=== PATIENT | female | born 1970 | race Caucasian/White ===

== ENCOUNTER 2024-11-12 12:23 | Emergency (ER) | payer SELFPAY ==
[2024-11-12 12:32] VITALS: RESP 18; TEMP 97.8
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
--- NOTE | 2024-11-12 13:05 | XRAY ---
Indication: Swelling. No known injury. Comparison: None 3 view left knee demonstrates mild focal soft tissue swelling versus bursitis anterior to tibial plateau. Elsewhere osteopenia, tiny suprapatella spurring, small fabella, and mild scattered subcutaneous venous varicosities. No other abnormalities.
[2024-11-12 13:37] VITALS: BP 145/103; PULSE 78
[2024-11-12] MEDS ORDERED: DELTASONE 20 MG ONE (13:48)
[2024-11-12] MEDS ORDERED: Augmentin 875-125 Tablet ONE (13:48)
[2024-11-12] MEDS: DELTASONE 20 MG PO ONE (13:50)
[2024-11-12] MEDS: Augmentin 875-125 Tablet PO ONE (13:50)
[2024-11-12 14:28] VITALS: O2SAT 98
== END 2024-11-12 14:44 | disposition home or self-care (01) ==
LOC: ED 12:23
DX: M70.52 Other bursitis of knee, left knee (principal); M25.562 Pain in left knee; Z79.52 Long term (current) use of systemic steroids; Z79.899 Other long term (current) drug therapy; Z72.0 Tobacco use
CPT/HCPCS: 73562; 99283; A9270-GY

== ENCOUNTER 2024-11-18 23:05 | Observation (INO) | payer OTHER ==
[2024-11-18] MEDS ORDERED: TYLENOL 325 MG ONE (23:48)
[2024-11-18] MEDS ORDERED: PIPERACILLIN/TAZOBACTAM IV ONE (23:48)
[2024-11-18] MEDS ORDERED: Sodium Chloride 0.9% 1000 ML 1,000 ML ONE (23:49)
[2024-11-18] MEDS ORDERED: Sodium Chloride 100ML MINI-BAG PLUS 100 ML IV ONE (23:49)
[2024-11-18 23:52] LABS: Absolute Neutrophil Ct (ANC) 9.71 x10^3/uL (1.56-6.13); BASOPHIL % 0.3 % (0.1-1.2); Basophil (Absolute #) 0.04 x10^3/uL (0.01-0.08); Eosinophil % 1.1 % (0.7-5.8); Eosinophil (Absolute #) 0.13 x10^3/uL (0.04-0.36); Hematocrit 38.7 % (34.1-44.9); Hemoglobin 12.6 g/dL (11.2-15.7); IMMATURE GRAN # 0.08 x10^3u/L (0.001-0.031); IMMATURE GRAN % 0.6 % (0.001-0.429); Lymphocytes % 11.4 % (19.3-51.7); Mean Cell Volume 86.4 fL (79.4-94.8); Mean Corpuscular Hemoglobin 28.1 pg (25.6-32.2); Mean Corpuscular Hgb Concent. 32.6 g/dL (32.2-35.5); Monocyte (Absolute #) 0.95 x10^3/uL (0.24-0.86); Monocytes % 7.7 % (4.7-12.5); Neutrophil % 78.9 % (34.0-71.1); Platelet Count 455 x10^3/uL (182-369); Red Blood Count 4.48 x10^6/uL (3.93-5.22); Red Cell Distribution Width 13.1 % (11.7-14.4); White Blood Count 12.3 x10^3/uL (3.98-10.04)
[2024-11-18] MEDS: PIPERACILLIN/TAZOBACTAM 3.375 GM in Sodium Chloride 100ML MINI-BAG PLUS 100 ML IV ONE (23:53)
[2024-11-18] MEDS: TYLENOL 325 MG PO STA (23:54)
[2024-11-18] MEDS: Sodium Chloride 0.9% 1000 ML 1,000 ML IV SCH (23:56)
[2024-11-19 00:04] LABS: ALBUMIN 3.9 g/dL (3.5-5.0); ANION GAP 15.2 MEQ/L (5-15); BILIRUBIN,TOTAL 0.6 mg/dL (0.2-1.3); Calcium 8.6 mg/dL (8.4-10.2); Creatinine 1 0.68 mg/dL (0.52-1.04); EST GLOMERULAR FILTRATION RATE 104.1 ML/MIN; Potassium 4.1 mmol/L (3.5-5.1); Total Protein 7.4 g/dL (6.3-8.2)
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
[2024-11-19] MEDS ORDERED: VANCOMYCIN 1 GRAM/200 ML BAG 1 GM/200 ML PIGGYBACK IV ONE (00:38)
[2024-11-19] MEDS: VANCOMYCIN 1 GRAM/200 ML BAG 1 GM/200 ML PIGGYBACK IV ONE (00:39)
[2024-11-19 02:58] LABS: Appearance Clear (Clear); Bacteria Rare /HPF (None Seen); Bilirubin Negative (Negative); Blood Trace (Negative); Epithelial Cells Few /HPF (None Seen); Glucose, Urine Negative (Negative); Hyaline Casts NONE SEEN /LPF (0-2); Ketones Negative (Negative); Leukocyte Esterase Trace (Negative); Nitrite Negative (Negative); Ph 5.5 (4.6-8.0); Protein,Urine Dip Trace (Negative); RBC 0-2 /HPF (0-5); WBC 0-2 /HPF (0-5)
[2024-11-19] MEDS ORDERED: MORPHINE SULFATE 2 MG INJ IV PRN (03:57)
[2024-11-19] MEDS ORDERED: NORCO 5/325 MG PO PRN (03:57)
[2024-11-19] MEDS ORDERED: Zofran 4 MG/2 ML VIAL IV PRN (03:57)
--- NOTE | 2024-11-19 04:05 | PCM.HP ---
History of Present Illness - Chief Complaint Chief Complaint: Left leg pain and swelling Date: 11/19/24 History of Present Illness: 54-year-old woman with no significant past medical history who presents with right leg pain, redness, and swelling. Patient noted onset of pain and swelling around her left knee about 10 days ago. Last week, she came to the ED where she was diagnosed with infrapatellar bursitis. She was given Augmentin and prednisone, but she only took 1 dose of each because she felt nauseated. The pain continued to worsen, with increasing spread of the erythema. Eventually came to where she had difficulty bending her knee due to the pain and had some episode of numbness. She had not noted any drainage from the wound, but did have a serous blister that broke open on the way to the ED tonight. She had not noted any fevers, but her temperature was 103 on arrival to the ED. ED provider was able to drain a superficial fluid collection, and patient noted that her numbness resolved after that. However, the ED provider noted a deeper fluid collection that he suspected was the actual infrapatellar bursa that was inflamed, or was adjacent to the bursa. Orthopedics was consulted in the ED, and will see patient in the morning. Patient denies any anorexia, nausea, or weight change. - Review of Systems All Other Systems: Reviewed and Negative Medications & Allergies Home Medications: Home Medication List No Reportable Medications [No Reported Medications] 11/19/24 [History Confirmed 11/19/24] Allergies/Adverse Reactions: Allergies Allergy/AdvReac Type Severity Reaction Status Date / Time amoxicillin [From Augmentin] AdvReac Vomiting Verified 11/19/24 02:08 clavulanic acid AdvReac Vomiting Verified 11/19/24 02:08 [From Augmentin] diclofenac AdvReac Vomiting Verified 11/19/24 02:08 - Past Medical History Past Medical History: No Neurological History: Migraines ENT History: No Pertinent History Cardiac History: Hypertension Respiratory History: No Pertinent History Endocrine Medical History: No Pertinent History Musculoskelatal History: No Pertinent History GI Medical History: Ulcer History: No Pertinent History Reproductive Disorders: No Pertinent History Comment: broke nose at 18 years old - Female History Hx Last Menstrual Period: 48 years old Are you now?: No - Past Surgical History Past Surgical History: Yes Other Surgical History: d and c Significant Family History: no pertinent family hx - Social History Smoking Status: Current every day smoker How long have you smoked: years Exposure to second hand smoke: No Alcohol: None Drug Use: none - Social Determinants of Health Will the patient participate in the screening: Yes Do you worry about a steady place to live?: No Do you have any problems with any of the following?: No known problems In the past 12 months,have you had to go without utilities?: No Have you or anyone in your house had to go without enough: No Transportation Issues: No Has anyone in your support network made you feel unsafe?: No Does the patient want assistance with any of the above?: No - Physical Exam Vital Signs: Vital Signs - 24 hr Temp Pulse Resp BP BP Pulse Ox 11/19/24 02:55 97.5 F 76 20 124/70 94 L 11/19/24 02:30 80 18 137/83 97 11/19/24 02:00 77 20 113/75 94 L 11/19/24 01:51 95 11/19/24 01:30 77 21 117/73 95 11/19/24 01:00 84 23 111/72 94 L 11/19/24 00:30 94 H 23 122/77 94 L 11/19/24 00:03 91 H 23 125/85 93 L 11/18/24 23:41 95 11/18/24 23:24 103 F 95 H 25 H 163/99 97 Physical Exam GEN: Sitting up in bed in no acute distress. HENT: Normocephalic, atraumatic. Moist mucous membranes. EYES: Normal inspection, anicteric sclera, extraocular movements intact. NECK: Supple, full range of motion CV: Regular rate and rhythm, no murmurs, no gallops. No JVD or edema. PULM: Clear to auscultation bilaterally, no work of breathing. On room air. ABD: Nondistended, nontender. MSK: No joint effusions, intact movement of left knee with some limited range of motion, flexing to 90 degrees, and intact range of motion of distal leg SKIN: Left knee with erythema from just superior to the knee extending to the mid seaman, and extending medially and laterally but not circumferentially posterior to the knee. NEURO: Face symmetric, no focal motor or sensory deficits. PSYCH: Alert, oriented x 3 Results - Labs Lab/Micro Results: Lab Results-Last 24 Hours 11/18/24 11/18/24 11/18/24 Range/Units 23:30 23:30 23:40 WBC 12.3 H (3.98-10.04) x10^3/uL RBC 4.48 (3.93-5.22) x10^6/uL Hgb 12.6 (11.2-15.7) g/dL Hct 38.7 (34.1-44.9) % MCV 86.4 (79.4-94.8) fL MCH 28.1 (25.6-32.2) pg MCHC 32.6 (32.2-35.5) g/dL RDW 13.1 (11.7-14.4) % Plt Count 455 H (182-369) x10^3/uL MPV 9.0 L (9.4-12.3) fL Gran % 78.9 H (34.0-71.1) % Immature Gran % (Auto) 0.6 H (0.001-0.429) % Nucleat RBC Rel Count 0.0 (0.00-0.2) % Eos # (Auto) 0.13 (0.04-0.36) x10^3/uL Immature Gran # (Auto) 0.08 H (0.001-0.031) x10^3u/L Absolute Lymphs (auto) 1.40 (1.18-3.74) x10^3/uL Absolute Monos (auto) 0.95 H (0.24-0.86) x10^3/uL Absolute Nucleated RBC 0.00 (0.00-0.012) x10^3u/L Lymphocytes % 11.4 L (19.3-51.7) % Monocytes % 7.7 (4.7-12.5) % Eosinophils % 1.1 (0.7-5.8) % Basophils % 0.3 (0.1-1.2) % Absolute Granulocytes 9.71 H (1.56-6.13) x10^3/uL Basophils # 0.04 (0.01-0.08) x10^3/uL Sodium 133 L (135-145) mmol/L Potassium 4.1 (3.5-5.1) mmol/L Chloride 100 (98-107) mmol/L Carbon Dioxide 22 (22-30) mmol/L Anion Gap 15.2 H (5-15) MEQ/L BUN 9 (7-17) mg/dL Creatinine 0.68 (0.52-1.04) mg/dL Estimated GFR 104.1 ML/MIN Glucose 172 H (74-106) mg/dL Lactic Acid 1.6 (0.4-2.0) Calcium 8.6 (8.4-10.2) mg/dL Total Bilirubin 0.60 (0.2-1.3) mg/dL AST 29 (14-36) U/L ALT 31 (0-35) U/L Alkaline Phosphatase 132 H (38-126) U/L Serum Total Protein 7.4 (6.3-8.2) g/dL Albumin 3.9 (3.5-5.0) g/dL Urine Color (Yellow) Urine Appearance (Clear) Urine pH (4.6-8.0) Ur Specific [place] (1.005-1.030) Urine Protein (Negative) Urine Glucose (UA) (Negative) mg/dL Urine Ketones (Negative) Urine Blood (Negative) Urine Nitrite (Negative) Urine Bilirubin (Negative) Urine Urobilinogen (0.2) mg/dL Ur Leukocyte Esterase (Negative) U Hyaline Cast (Auto) (0-2) /LPF Urine Microscopic RBC (0-5) /HPF Urine Microscopic WBC (0-5) /HPF Ur Epithelial Cells (None Seen) /HPF Urine Bacteria (None Seen) /HPF Urine Culture Reflexed (NO) 11/19/24 Range/Units 02:45 WBC (3.98-10.04) x10^3/uL RBC (3.93-5.22) x10^6/uL Hgb (11.2-15.7) g/dL Hct (34.1-44.9) % MCV (79.4-94.8) fL MCH (25.6-32.2) pg MCHC (32.2-35.5) g/dL RDW (11.7-14.4) % Plt Count (182-369) x10^3/uL MPV (9.4-12.3) fL Gran % (34.0-71.1) % Immature Gran % (Auto) (0.001-0.429) % Nucleat RBC Rel Count (0.00-0.2) % Eos # (Auto) (0.04-0.36) x10^3/uL Immature Gran # (Auto) (0.001-0.031) x10^3u/L Absolute Lymphs (auto) (1.18-3.74) x10^3/uL Absolute Monos (auto) (0.24-0.86) x10^3/uL Absolute Nucleated RBC (0.00-0.012) x10^3u/L Lymphocytes % (19.3-51.7) % Monocytes % (4.7-12.5) % Eosinophils % (0.7-5.8) % Basophils % (0.1-1.2) % Absolute Granulocytes (1.56-6.13) x10^3/uL Basophils # (0.01-0.08) x10^3/uL Sodium (135-145) mmol/L Potassium (3.5-5.1) mmol/L Chloride (98-107) mmol/L Carbon Dioxide (22-30) mmol/L Anion Gap (5-15) MEQ/L BUN (7-17) mg/dL Creatinine (0.52-1.04) mg/dL Estimated GFR ML/MIN Glucose (74-106) mg/dL Lactic Acid (0.4-2.0) Calcium (8.4-10.2) mg/dL Total Bilirubin (0.2-1.3) mg/dL AST (14-36) U/L ALT (0-35) U/L Alkaline Phosphatase (38-126) U/L Serum Total Protein (6.3-8.2) g/dL Albumin (3.5-5.0) g/dL Urine Color Yellow (Yellow) Urine Appearance Clear (Clear) Urine pH 5.5 (4.6-8.0) Ur Specific [place] 1.010 (1.005-1.030) Urine Protein Trace A (Negative) Urine Glucose (UA) Negative (Negative) mg/dL Urine Ketones Negative (Negative) Urine Blood Trace (Negative) Urine Nitrite Negative (Negative) Urine Bilirubin Negative (Negative) Urine Urobilinogen 1.0 A (0.2) mg/dL Ur Leukocyte Esterase Trace A (Negative) U Hyaline Cast (Auto) NONE SEEN (0-2) /LPF Urine Microscopic RBC 0-2 (0-5) /HPF Urine Microscopic WBC 0-2 (0-5) /HPF Ur Epithelial Cells Few (None Seen) /HPF Urine Bacteria Rare A (None Seen) /HPF Urine Culture Reflexed NO (NO) - Radiology Impressions Radiology Exams & Impressions: Radiology Procedures Category Date Time Status KNEE (1 OR 2 VIEW) Stat Exams 11/19/24 00:33 Taken Assessment/Plan (1) Cellulitis Current Visit: Yes Status: Acute Assessment & Plan: 54-year-old woman with history only of tobacco use, who presents with left leg cellulitis. ## Left leg cellulitis, possible bursitis with erythema over her left leg, progressive over the last 7 to 10 days. ED provider noted area of deep fluctuance concerning for deeper fluid collection. Given presence of fluid collection, will need coverage for staph. Orthopedics consulted, will see patient in the morning to see if needs bursa or joint space drained Remain n.p.o. pending evaluation for need for surgery versus bedside [place] Start vancomycin and Rocephin; vancomycin for coverage for MRSA, and Rocephin for more bacteriocidal rapid improvement of MSSA or strep PRN [place] and morphine for pain Follow-up culture from fluid collection drained by ED provider ## Tobacco use Patient declined nicotine patch Counseled on smoking cessation CODE STATUS: Full code Prophylaxis: Low risk, encourage ambulation Diet: N.p.o., can change to regular diet if not planning on surgery this morning Dispo: Place in observation Entirety of encounter took place via live audio/video telemedicine device, with remote physician and patient in hospital, with the assistance of bedside nurse. Code(s): L03.90 - CELLULITIS, UNSPECIFIED Telemedicine Encounter - Telemedicine Encounter Telemedicine Encounter: "The entirety of this encounter was performed via Telemedicine" This visit was performed using real-time audio and video connection between my location and thepatients locationwith the assistance of a surrogateat the patients location. Written or verbal consent was obtained from the patient/guardian to perform this visit [facility]. Any patient questions regarding the telemedicine interaction were answered.
[2024-11-19 06:02] LABS: Hematocrit 37.9 % (34.1-44.9); Hemoglobin 12.2 g/dL (11.2-15.7); Mean Cell Volume 87.3 fL (79.4-94.8); Mean Corpuscular Hemoglobin 28.1 pg (25.6-32.2); Mean Corpuscular Hgb Concent. 32.2 g/dL (32.2-35.5); Mean Platelet Volume 8.9 fL (9.4-12.3); Platelet Count 445 x10^3/uL (182-369); Red Blood Count 4.34 x10^6/uL (3.93-5.22); Red Cell Distribution Width 13.1 % (11.7-14.4); White Blood Count 12.9 x10^3/uL (3.98-10.04)
[2024-11-19 06:21] LABS: ANION GAP 14.9 MEQ/L (5-15); Calcium 8.5 mg/dL (8.4-10.2); Creatinine 1 0.75 mg/dL (0.52-1.04); EST GLOMERULAR FILTRATION RATE 95.1 ML/MIN; PREALBUMIN 6.1 mg/dL (17.6-36.0)
--- NOTE | 2024-11-19 09:01 | XRAY ---
Indication: Pain. Comparison: November 12, 2024 2 view left knee demonstrates interval worsening anterior knee soft tissue swelling versus bursitis. Elsewhere stable osteopenia, tiny suprapatella spurring, fabella, and mild scattered subcutaneous venous varicosities. No new bony, articular, or soft tissue abnormalities.
[2024-11-19] MEDS: ROCEPHIN 2 GM/100 ML NACL 2 GM/100 ML IVPB IV SCH (09:23)
[2024-11-19] MEDS: TYLENOL 325 MG PO PRN (09:39)
[2024-11-19] MEDS: Lactated Ringers 1,000 ML IV SCH (10:09)
[2024-11-19] MEDS: VANCOMYCIN 1.25 GM/250 ML BAG 1.25 GM/250 ML PIGGYBACK IV SCH (10:09)
[2024-11-19] MEDS: Reglan 10 MG/2 ML IV SCH (10:12)
[2024-11-19] MEDS: Pepcid 20 MG VIAL IV SCH (10:14)
[2024-11-19] MEDS: PHARMACY DOSING REQUIRED: VANCOMYCIN IV ONE (10:18)
[2024-11-19] MEDS ORDERED: Sensorcaine 0.25% 10 ML ONE (11:44)
[2024-11-19] MEDS ORDERED: Quelicin Fliptop 200 MG/10 ML ONE (11:50)
[2024-11-19] MEDS ORDERED: propofoL IV ONE (11:52)
[2024-11-19] MEDS ORDERED: Zofran 4 MG/2 ML VIAL ONE (11:52)
[2024-11-19] MEDS ORDERED: Xylocaine-Mpf 2% 5 Ml Vial ONE (11:52)
[2024-11-19] MEDS ORDERED: SUBLIMAZE 100 MCG/2 ML ONE (11:53)
[2024-11-19] MEDS ORDERED: ROCURONIUM BROMIDE IV ONE (12:37)
[2024-11-19] MEDS ORDERED: BRIDION 200MG/2ML IV ONE (12:37)
--- NOTE | 2024-11-19 12:49 | CONS ---
REASON FOR ADMISSION: Left knee pain. HISTORY: This 54-year-old female came to the emergency room last night because of pain, redness, swelling, and drainage from left knee. Symptoms arose insidiously within the past week. She denies history of injury. She had not had similar problem in the past. Denied gout. Simply states the left knee began to become red, swollen, and sore over the front of the knee. Symptoms developed. She did come to the emergency room this week and was placed on oral antibiotics. She did not tolerate the oral antibiotics and was not taking them, and the symptoms progressed. She then developed a blister which spontaneously opened and began to drain. She came to the emergency room for evaluation last night and was found to be febrile. Fluid was cultured, a dressing was applied, and she was admitted to the hospitalist service. PAST MEDICAL HISTORY: Positive for migraines, hypertension, peptic ulcer disease. PAST SURGICAL HISTORY: Significant for D and C. MEDICATIONS: Current medications of Tylenol, [place], morphine, Zofran, Rocephin, and vancomycin. SOCIAL HISTORY: Smokes daily. Works as a home health aide. PHYSICAL EXAMINATION: GENERAL: The patient is awake, alert and oriented, supine in bed. EXTREMITIES: She can move her upper extremities without difficulty. She can move her right lower extremity without difficulty. She has swelling over the anterior aspect of the left knee centered just below the patella. The area is raised, red, warm, tender, and there is a 3 to 4 mm open area with purulent-appearing liquid around the opening. The suprapatellar region is benign and nontender. She does tolerate flexion and extension of the knee from 0 to 30 degrees. The calf is nontender. Distal neurovascular status is normal. IMPRESSION: Septic bursa, left knee. PLAN: Recommend surgical incision and drainage of bursa left knee and continue hospitalization with observation and IV antibiotics.
[2024-11-19] MEDS ORDERED: Lactated Ringers 0 ML IV ONE (19:13)
[2024-11-20 05:33] LABS: Hematocrit 34.1 % (34.1-44.9); Hemoglobin 10.8 g/dL (11.2-15.7); Mean Cell Volume 87.7 fL (79.4-94.8); Mean Corpuscular Hemoglobin 27.8 pg (25.6-32.2); Mean Corpuscular Hgb Concent. 31.7 g/dL (32.2-35.5); Mean Platelet Volume 8.9 fL (9.4-12.3); Platelet Count 455 x10^3/uL (182-369); Red Blood Count 3.89 x10^6/uL (3.93-5.22); Red Cell Distribution Width 13.2 % (11.7-14.4); White Blood Count 10.4 x10^3/uL (3.98-10.04)
[2024-11-20 07:10] LABS: ALBUMIN 3.3 g/dL (3.5-5.0); BILIRUBIN,TOTAL 0.4 mg/dL (0.2-1.3); Calcium 8.2 mg/dL (8.4-10.2); Creatinine 1 0.78 mg/dL (0.52-1.04); EST GLOMERULAR FILTRATION RATE 90.8 ML/MIN; Potassium 4.1 mmol/L (3.5-5.1); Total Protein 6.5 g/dL (6.3-8.2)
[2024-11-20 08:37] VITALS: RESP 18
[2024-11-20] MEDS: TROUGH DRUG LEVELS IJ ONE (10:40)
--- NOTE | 2024-11-20 10:48 | PCM.NOTE ---
Date and Time: 11/20/24 1045 Subjective Assessment: 11/20/24 Ms. Duckwroth is a 54-year-old woman with no significant past medical history. She presented on 11/19/24 with right leg pain, redness, and swelling. Patient noted onset of pain and swelling around her left knee about 10 days ago. Last week, she came to the ED where she was diagnosed with infrapatellar bursitis. She was given Augmentin and prednisone, but she only took 1 dose of each because she felt nauseated. The pain continued to worsen, with increasing spread of the erythema. Eventually came to where she had difficulty bending her knee due to the pain and had some episode of numbness. She had not noted any drainage from the wound, but did have a serous blister that broke open on the way to the ED. She had not noted any fevers, but her temperature was 103 on arrival to the ED. ED provider was able to drain a superficial fluid collection, and patient noted that her numbness resolved after that. However, the ED provider noted a deeper fluid collection that he suspected was the actual infrapatellar bursa that was inflamed, or was adjacent to the bursa. Orthopedics was consulted in the ED and pt was taken to the OR on the morning of 11/19/24. Ortho to see pt again this afternoon. Knee wrapped with drain and packing in place. Pt has no needed pain meds all night. WBC improved 10.4. She did have a temp of 99.1 at 4AM. Continue IV antibiotics. She denies CP, SOB, abd .pain, N/V/D. - Review of Systems Constitutional: No Fever, No Chills Eyes: No Symptoms Ears, Nose, & Throat: No Symptoms Respiratory: No Cough, No Short Of Breath Cardiac: No Chest Pain, No Edema, No Syncope Abdominal/Gastrointestinal: No Abdominal Pain, No Nausea, No Vomiting, No Diarrhea Genitourinary Symptoms: No Dysuria Musculoskeletal: No Back Pain, No Neck Pain Skin: Cellulitis (Left knee), No Rash Neurological: No Dizziness, No Focal Weakness, No Sensory Changes Psychological: No Symptoms Endocrine: No Symptoms Hematologic/Lymphatic: No Symptoms Immunological/Allergic: No Symptoms Objective Exam General Appearance: no apparent distress, alert, obese Neurologic Exam: alert, oriented x 3, cooperative, normal mood/affect, nml cerebellar function, sensation nml, No motor deficits Skin Exam: normal color, warm, dry Wound Assessment: Skin/Wound Assessment Wound/Incision Assessment Start: 11/19/24 02:00 Text: Status: Active Freq: Q6H Protocol: Document 11/20/24 02:00 KD (Rec: 11/20/24 02:20 KD [id number]) Wound/Incision Assessment left knee Wound Assessment Shift Assessment Wound Type Incision Dressing Status Dry & Intact Drainage Amount None Drainage Odor None/Absent Comment Dressing from OR (11/19/24) and not removing dressing to assess wound at this time. Dressing CDI. Remains true Wound Photo Photo Taken No Eye Exam: PERRL, EOMI, eyes nml inspection Ears, Nose, Throat Exam: normal ENT inspection, pharynx normal, moist mucous membranes Neck Exam: normal inspection, non-tender, supple, full range of motion Respiratory Exam: normal breath sounds, lungs clear, No respiratory distress Cardiovascular Exam: regular rate/rhythm, normal heart sounds Gastrointestinal/Abdomen Exam: soft, No tenderness, No mass Extremity Exam: normal inspection, normal range of motion, inflammation, joint swelling, limited range of motion (Left knee), swelling, tenderness Back Exam: normal inspection, normal range of motion, No CVA tenderness, No vertebral tenderness Pelvic Exam: deferred Rectal Exam: deferred Objective Data Vital Signs: Vital Signs - 24 hr Temp Pulse Resp BP Pulse Ox 11/20/24 08:00 98.8 F 85 18 110/62 92 L 11/20/24 04:00 99.1 F 91 H 20 119/70 95 11/19/24 23:35 97.6 F 78 18 109/57 93 L 11/19/24 20:00 97.5 F 88 18 134/67 93 L 11/19/24 16:00 97.6 F 92 H 20 130/70 87 L 11/19/24 12:00 97.9 F 81 22 122/71 94 L 11/19/24 11:52 98.7 F 78 20 126/85 96 Pain Assessment - Last Documented Pain Intensity 0 Pain Scale Used 0-10 Pain Scale Intake and Output: Intake & Output 11/17/24 11/18/24 11/19/24 11/20/24 11:59 11:59 11:59 11:59 Intake Total 1156 Balance 1156 Weight 88.8 kg Lab Results: Lab Results-Last 24 Hours 11/20/24 11/20/24 Range/Units 05:04 05:04 WBC 10.4 H (3.98-10.04) x10^3/uL RBC 3.89 L (3.93-5.22) x10^6/uL Hgb 10.8 L (11.2-15.7) g/dL Hct 34.1 (34.1-44.9) % MCV 87.7 (79.4-94.8) fL MCH 27.8 (25.6-32.2) pg MCHC 31.7 L (32.2-35.5) g/dL RDW 13.2 (11.7-14.4) % Plt Count 455 H (182-369) x10^3/uL MPV 8.9 L (9.4-12.3) fL Sodium 138 (135-145) mmol/L Potassium 4.1 (3.5-5.1) mmol/L Chloride 103 (98-107) mmol/L Carbon Dioxide 25 (22-30) mmol/L Anion Gap 14.0 (5-15) MEQ/L BUN 10 (7-17) mg/dL Creatinine 0.78 (0.52-1.04) mg/dL Estimated GFR 90.8 ML/MIN Glucose 117 H (74-106) mg/dL Calcium 8.2 L (8.4-10.2) mg/dL Total Bilirubin 0.40 (0.2-1.3) mg/dL AST 25 (14-36) U/L ALT 25 (0-35) U/L Alkaline Phosphatase 131 H (38-126) U/L Serum Total Protein 6.5 (6.3-8.2) g/dL Albumin 3.3 L (3.5-5.0) g/dL Radiology Exams: Radiology Procedures Category Date Time Status KNEE (1 OR 2 VIEW) Stat Exams 11/19/24 00:33 Completed Assessment/Plan (1) Bursitis of left knee Current Visit: Yes Status: Acute Assessment & Plan: - Ortho consulted - Post op day 2 from Ortho procedure- + drian in place, wound packed, dressing in place - Awaiting ortho note to review plan of care - IV antibiotics - CBC, CMP reviewed - Left knee XR: 2 view left knee demonstrates interval worsening anterior knee soft tissue swelling versus bursitis. Elsewhere stable osteopenia, tiny suprapatella spurring, fabella, and mild scattered subcutaneous venous varicosities. No new bony, articular, or soft tissue abnormalities. Code(s): M70.52 - OTHER BURSITIS OF KNEE, LEFT KNEE (2) Cellulitis Current Visit: Yes Status: Acute Assessment & Plan: - Left knee/ leg - IV antibiotics - 2:2 infected bursa of left knee Code(s): L03.90 - CELLULITIS, UNSPECIFIED (3) Leukocytosis Current Visit: Yes Status: Acute Assessment & Plan: - Improved today WBC 10.4- trend - 2:2 infected Bursa Code(s): D72.829 - ELEVATED WHITE BLOOD CELL COUNT, UNSPECIFIED (4) Obesity (BMI 30-39.9) Current Visit: Yes Status: Chronic Assessment & Plan: - Advised diet and exercise control VTE: held PPI: protonix Next of KIN: none D/C plan: 1-2 days Code status: Full Code(s): E66.9 - OBESITY, UNSPECIFIED
[2024-11-20] MEDS ORDERED: PEROXIDE 3% ONE (11:38)
[2024-11-20] MEDS: Hydromorphone 1 mg/ml Injection IV ONE (11:41)
[2024-11-20] MEDS: PEROXIDE 3% TOP ONE (11:52)
[2024-11-20 12:27] VITALS: BP 124/69; PULSE 69; TEMP 97.2; O2SAT 94
--- NOTE | 2024-11-20 13:11 | PCM.DS ---
Discharge Summary Date of Admission: 11/19/24 02:48 Date of Discharge: 11/20/24 Admitting Physician: LUCILA QUINN MD Primary Care Provider: NO FAMILY DOCTOR Allergies Allergies amoxicillin [From Augmentin] Adverse Reaction (Verified 11/19/24 02:08) Vomiting clavulanic acid [From Augmentin] Adverse Reaction (Verified 11/19/24 02:08) Vomiting diclofenac Adverse Reaction (Verified 11/19/24 02:08) Vomiting Hospital Summary - Hospital Course Hospital Course: 11/20/24 Ms. Duckworth is a 54-year-old woman with no significant past medical history. She presented on 11/19/24 with right leg pain, redness, and swelling. Patient noted onset of pain and swelling around her left knee about 10 days ago. Last week, she came to the ED where she was diagnosed with infrapatellar bursitis. She was given Augmentin and prednisone, but she only took 1 dose of each because she felt nauseated. The pain continued to worsen, with increasing spread of the erythema. Eventually came to where she had difficulty bending her knee due to the pain and had some episode of numbness. She had not noted any drainage from the wound, but did have a serous blister that broke open on the way to the ED. She had not noted any fevers, but her temperature was 103 on arrival to the ED. ED provider was able to drain a superficial fluid collection, and patient noted that her numbness resolved after that. However, the ED provider noted a deeper fluid collection that he suspected was the actual infrapatellar bursa that was inflamed, or was adjacent to the bursa. Orthopedics was consulted in the ED and pt was taken to the OR on the morning of 11/19/24. Ortho to see pt again this afternoon. Knee wrapped with drain and packing in place. Pt has no needed pain meds all night. WBC improved 10.4. She did have a temp of 99.1 at 4AM. Continue IV antibiotics. She denies CP, SOB, abd .pain, N/V/D. ortho came back to eval pt and explained he is ok with d/c today after PT eval and to f/u in the office in 7 days - Vitals & Intake/Output Vital Signs: Vital Signs Temperature 97.2 F 11/20/24 12:00 Pulse Rate 69 11/20/24 12:00 Respiratory Rate 18 11/20/24 12:00 Blood Pressure 124/69 11/20/24 12:00 O2 Sat by Pulse Oximetry 94 L 11/20/24 12:00 Intake & Output: Intake & Output 11/18/24 11/19/24 11/20/24 11/21/24 11:59 11:59 11:59 11:59 Intake Total 1156 Balance 1156 Weight 88.8 kg - Lab Result Diagrams: 11/20/24 05:04 11/20/24 05:04 Lab Results-Last 24 Hrs: Lab Results-Last 24 Hours 11/20/24 11/20/24 11/20/24 Range/Units 05:04 05:04 10:35 WBC 10.4 H (3.98-10.04) x10^3/uL RBC 3.89 L (3.93-5.22) x10^6/uL Hgb 10.8 L (11.2-15.7) g/dL Hct 34.1 (34.1-44.9) % MCV 87.7 (79.4-94.8) fL MCH 27.8 (25.6-32.2) pg MCHC 31.7 L (32.2-35.5) g/dL RDW 13.2 (11.7-14.4) % Plt Count 455 H (182-369) x10^3/uL MPV 8.9 L (9.4-12.3) fL Sodium 138 (135-145) mmol/L Potassium 4.1 (3.5-5.1) mmol/L Chloride 103 (98-107) mmol/L Carbon Dioxide 25 (22-30) mmol/L Anion Gap 14.0 (5-15) MEQ/L BUN 10 (7-17) mg/dL Creatinine 0.78 (0.52-1.04) mg/dL Estimated GFR 90.8 ML/MIN Glucose 117 H (74-106) mg/dL Calcium 8.2 L (8.4-10.2) mg/dL Total Bilirubin 0.40 (0.2-1.3) mg/dL AST 25 (14-36) U/L ALT 25 (0-35) U/L Alkaline Phosphatase 131 H (38-126) U/L Serum Total Protein 6.5 (6.3-8.2) g/dL Albumin 3.3 L (3.5-5.0) g/dL Vancomycin Trough 6.75 L (10-20) ug/mL Micro Results-Entire Visit: Microbiology 11/19/24 00:57 Wound Culture - Preliminary Abcess GRAM POSITIVE ID AND SENSITIVITY PENDING 11/18/24 23:47 Blood Culture - Preliminary Blood 11/18/24 23:30 Blood Culture - Preliminary Blood - Radiology Exams Ordered Rad Exams-Entire Visit: Radiology Procedures Category Date Time Status KNEE (1 OR 2 VIEW) Stat Exams 11/19/24 00:33 Completed - Procedures and Test Procedures and Tests throughout Hospitalization: Therapy Orders & Screens 11/20/24 13:05 PT Eval & Treat ( Order) ONCE Reason for Eval:: ambulation with left knee immobilizer Diagnosis: Left leg pain and swelling Discharge Exam General Appearance: no apparent distress, alert Neurologic Exam: alert, oriented x 3, cooperative, normal mood/affect, nml cerebellar function, sensation nml, No motor deficits Eye Exam: PERRL, EOMI, eyes nml inspection Ears, Nose, Throat Exam: normal ENT inspection, pharynx normal, moist mucous membranes Neck Exam: normal inspection, non-tender, supple, full range of motion Respiratory Exam: normal breath sounds, lungs clear, No respiratory distress Cardiovascular Exam: regular rate/rhythm, normal heart sounds Gastrointestinal/Abdomen Exam: soft, No tenderness, No mass Pelvic Exam: deferred Rectal Exam: deferred Back Exam: normal inspection, normal range of motion, No CVA tenderness, No vertebral tenderness Extremity Exam: normal inspection, normal range of motion, inflammation, joint swelling, tenderness (left knee) Skin Exam: normal color, warm, dry Wound Assessment: Skin/Wound Assessment Wound/Incision Assessment Start: 11/19/24 02:00 Text: Status: Active Freq: Q6H Protocol: Document 11/20/24 02:00 KD (Rec: 11/20/24 02:20 KD [id number]) Wound/Incision Assessment left knee Wound Assessment Shift Assessment Wound Type Incision Dressing Status Dry & Intact Drainage Amount None Drainage Odor None/Absent Comment Dressing from OR (11/19/24) and not removing dressing to assess wound at this time. Dressing CDI. Remains true Wound Photo Photo Taken No Final Diagnosis/Problem List - Final Discharge Diagnosis/Problem (1) Bursitis of left knee Current Visit: Yes Status: Acute Code(s): M70.52 - OTHER BURSITIS OF KNEE, LEFT KNEE (2) Cellulitis Current Visit: Yes Status: Acute Code(s): L03.90 - CELLULITIS, UNSPECIFIED (3) Leukocytosis Current Visit: Yes Status: Acute Code(s): D72.829 - ELEVATED WHITE BLOOD CELL COUNT, UNSPECIFIED (4) Obesity (BMI 30-39.9) Current Visit: Yes Status: Chronic Assessment & Plan: (1) Bursitis of left knee Current Visit: Yes Status: Acute Assessment & Plan: - Ortho consulted - Post op day 2 from Ortho procedure- + drian in place, wound packed, dressing in place - Awaiting ortho note to review plan of care - IV antibiotics - CBC, CMP reviewed - Left knee XR: 2 view left knee demonstrates interval worsening anterior knee soft tissue swelling versus bursitis. Elsewhere stable osteopenia, tiny suprapatella spurring, fabella, and mild scattered subcutaneous venous varicosities. No new bony, articular, or soft tissue abnormalities. 11/20 - PT eval per Ortho - F/U with ortho in 7 days - Continue OP antibiotics per ortho recs- clindamycin 300mg TID x 7 days - Narcotic pain control Code(s): M70.52 - OTHER BURSITIS OF KNEE, LEFT KNEE (2) Cellulitis Current Visit: Yes Status: Acute Assessment & Plan: - Left knee/ leg - IV antibiotics - 2:2 infected bursa of left knee Code(s): L03.90 - CELLULITIS, UNSPECIFIED (3) Leukocytosis Current Visit: Yes Status: Acute Assessment & Plan: - Improved today WBC 10.4- trend - 2:2 infected Bursa Code(s): D72.829 - ELEVATED WHITE BLOOD CELL COUNT, UNSPECIFIED (4) Obesity (BMI 30-39.9) Current Visit: Yes Status: Chronic Assessment & Plan: - Advised diet and exercise control Code(s): E66.9 - OBESITY, UNSPECIFIED - Discharge Discharge Date: 11/20/24 Disposition: Home, Self-Care Condition: Stable Prescriptions: New Hydrocodone/Acetaminophen [Hydrocodone-Acetamin 5-325 mg] 1 tab PO Q6HPRN PRN 3 Days #12 tablet MDD 4 PRN Reason: Pain clindamycin HCL [Clindamycin HCl] 300 mg PO TID 7 Days #21 cap Follow up with: JOSE LAMB MD [ACTIVE STAFF] -
[2024-11-20] MEDS: Protonix 20MG Tablet PO SCH (13:13)
--- NOTE | 2024-11-20 13:34 | OP ---
SURGERY DATE/TIME: 11/19/2024 [id number] PREOPERATIVE DIAGNOSIS: Septic bursitis, left knee. POSTOPERATIVE DIAGNOSIS: Septic bursitis, left knee. PROCEDURE: Incision, drainage, and debridement of septic bursa, left knee. SURGEON: Torrey Bella MD INDICATIONS: This patient was admitted last night to [facility] with progressive pain, redness, swelling in the anterior aspect of her left knee. This area had developed a blister which then ruptured producing purulent drainage prior to her arriving in the emergency room. Cultures were obtained in the emergency room, and she was then admitted to the floor under the care of the hospitalist service. She was evaluated orthopedically and a large, fluid-filled, fluctuant bursa was noted inferior to the patella. We recommended incision and drainage. Procedure risks and benefits were discussed. DESCRIPTION OF PROCEDURE AND FINDINGS: The patient was seen preoperatively and operative limb was identified, confirmed, and initialed. She was then taken to the operating room and placed under general anesthesia. The main area of fluctuance was approximately 2.5 inches around and was below the patella, more consistent with a pretibial bursitis. There was an open wound through which purulent material was draining. We performed a sterile prep with Betadine, keeping the extremity lying supine. We then blocked off the knee area with towels and sterile drapes and covered this with Ioban. We made a 2-inch incision over the fluctuant bursa. We spread the subcutaneous tissue, and a large volume of purulent material escaped from the bursa. Once we had expressed all of the fluid out, we performed pulsatile lavage with 3 L of saline. We then debrided the internal aspect of the bursa removing loose fragments of bursal tissue. We irrigated once again with another 3000 L of normal saline solution. We then created a 1 cm stab wound incision at the distal lateral end of the bursal space. Through this, we inserted a hemostat and brought a wick of 0.5-inch iodoform out of the incision. We then packed the wound with iodoform and proceeded to close with a single layer of nylon suture. A bulky, padded, sterile dressing was applied. She was then taken to the recovery room in stable condition.
[2024-11-20] MEDS ORDERED: VANCOMYCIN 1 GRAM/200 ML BAG 1 GM/200 ML PIGGYBACK IV SCH (18:00)
[2024-11-21] MEDS ORDERED: TROUGH DRUG LEVELS IJ ONE (09:30)
--- NOTE | 2024-11-21 12:57 | PROG NOTE ---
SUBJECTIVE: Status post incision and drainage infected bursa left knee November 19, 2024, patient reports improved pain from preoperative status. OBJECTIVE: Patient is awake, alert, oriented, has no complaints. Her leg is wrapped with surgical dressing. We proceeded to remove the wrap. The gauze padding and ABD were stained with serosanguineous fluid. We removed all the cover dressings. There was a 2-inch incision over the anterior knee closed with suture and there was a small open wound with protruding iodoform gauze. We pulled out all of the iodoform gauze and then tried to express any additional fluid from the bursa. We then cleaned the area with peroxide followed by alcohol. ASSESSMENT: Status post incision and drainage infected bursa left knee most likely with Staph aureus or MRSA. PLAN: We will treat her with a wound VAC at this time. Continue antibiotics, likely can switch over to oral coverage for MRSA. Physical therapy evaluation. If patient can walk independently and lab work is satisfactory, can be discharged home. We recommend a knee immobilizer brace to minimize bending of the knee and continue topical Prevena wound VAC dressing for 7 days. Follow up in orthopedic clinic next week on November 25.
== END 2024-11-20 16:23 | disposition home or self-care (01) ==
LOC: ED 23:05 → MED SURG 11-19 02:48
PROVIDERS: ADMIT Internal Medicine; ATTEND Internal Medicine
DX: M70.52 Other bursitis of knee, left knee (principal); L03.116 Cellulitis of left lower limb; D72.829 Elevated white blood cell count, unspecified; E66.9 Obesity, unspecified; F17.200 Nicotine dependence, unspecified, uncomplicated; R50.9 Fever, unspecified; M25.562 Pain in left knee; I10 Essential (primary) hypertension
CPT/HCPCS: 27604; 36415; 73560; 80048; 80053; 80202; 81001; 83605; 84134; 85025; 85027; 87040; 87070; 87075; 87077; 87186; 93041; 94760; 97161; 99285; G0378; Q3014; 99222; J0330; J0696; J1171; J2405; J2704; J3010; L1830; A9270-GY; J3370